=== PATIENT | female | born 1985 | race Caucasian/White ===

== ENCOUNTER 2017-07-31 09:04 | Outpatient (CLI) | payer OTHER | END 2017-07-31 13:15 | disposition home or self-care (01) | LOC: OBT 09:04 → L-D 09:09 → OBT 13:15 | DX: O62.9 Abnormality of forces of labor, unspecified (principal); Z3A.40 40 weeks gestation of pregnancy | CPT/HCPCS: 76818 ==

== ENCOUNTER 2017-08-01 16:50 | Inpatient (IN) | payer OTHER ==
[2017-08-01] MEDS ORDERED: HYDROCODONE/APAP (5/325) TAB PO ×3 (17:30→23:00)
[2017-08-01] MEDS ORDERED: METHYLERGONOVINE 0.2 MG INJ IM (17:30)
[2017-08-01] MEDS ORDERED: MISOPROSTOL 200 MCG TAB PR (17:30)
[2017-08-01] MEDS ORDERED: BUTORPHANOL 2 MG INJ IV (17:30)
[2017-08-01] MEDS ORDERED: OXYTOCIN 30 UNITS/LR 500 ML IV (17:30)
[2017-08-01] MEDS ORDERED: LIDOCAINE 1% (MPF) 30 ML INJ INJ (17:30)
[2017-08-01] MEDS ORDERED: CARBOPROST 250 MCG INJ IM (17:30)
[2017-08-01] MEDS: LACTATED RINGER'S 1,000 ML IV (17:31)
[2017-08-01 17:52] LABS: ADD MAN DIFF? NO
[2017-08-01 17:53] LABS: BASOPHILS % 0.2 % (0.0-2.0); EOSINOPHILS # 0.1 10^3/ul (0.0-0.5); EOSINOPHILS % 0.6 % (0.0-7.0); HEMATOCRIT 34.2 % (37.0-47.0); HEMOGLOBIN 11.7 g/dl (12.0-16.0); LYMPHOCYTES # 1.9 10^3/ul (0.8-2.9); LYMPHOCYTES % 13.1 % (15.0-51.0); MEAN CORPUSCULAR HEMOGLOBIN 29.3 pg (29.0-33.0); MEAN CORPUSCULAR HGB CONC 34.2 g/dl (32.0-37.0); MEAN CORPUSCULAR VOLUME 85.7 fl (82.0-101.0); MEAN PLATELET VOLUME 10.7 fl (7.4-10.4); MONOCYTES % 6.8 % (0.0-11.0); NEUTROPHIL # 11.2 10^3/ul (1.6-7.5); NEUTROPHILS % 78.8 % (39.0-77.0); PLATELET COUNT 279 10^3/UL (140-415); RED BLOOD COUNT 3.99 10^6/ul (4.20-5.40); RED CELL DISTRIBUTION WIDTH 13.3 % (11.5-14.5)
[2017-08-01 17:53] LABS: WHITE BLOOD COUNT 14.2 10^3/ul (4.8-10.8)
[2017-08-01 18:13] LABS: INR 0.91; PARTIAL THROMBOPLASTIN TIME 27.9 Sec (25.0-35.0); PROTIME 12.3 Sec (11.9-14.9)
[2017-08-01 18:49] LABS: HEPATITIS B SURFACE ANTIGEN NEGATIVE (NEGATIVE)
[2017-08-01] MEDS: IBUPROFEN 600 MG TAB PO (20:50)
[2017-08-01] MEDS: OXYTOCIN 30 UNITS/LR 500 ML IV ×2 (21:27→21:28)
[2017-08-01 22:09] LABS: RAPID PLASMA REAGIN NONREACTIVE (NR)
[2017-08-01] MEDS ORDERED: ONDANSETRON 4 MG INJ IV (23:00)
[2017-08-01] MEDS ORDERED: ACETAMINOPHEN 325 MG TAB PO (23:00)
[2017-08-01] MEDS ORDERED: OXYCODONE/ASPIRIN (4.88/325) TAB PO ×2 (23:00)
[2017-08-01] MEDS ORDERED: BENZOCAINE 20% 56 ML SPRAY TOP (23:00)
[2017-08-01] MEDS ORDERED: DIBUCAINE 1% 30 GM OINT PR (23:00)
[2017-08-01] MEDS ORDERED: WITCH HAZEL/GLYCERIN PAD PR (23:00)
[2017-08-02] MEDS: LANOLIN 7 GM TUBE TOP (00:51)
[2017-08-02] MEDS: IBUPROFEN 600 MG TAB PO ×5 (00:51→23:54)
[2017-08-02] MEDS: OXYTOCIN 30 UNITS/LR 500 ML IV (01:52)
[2017-08-02 08:56] LABS: ADD MAN DIFF? NO
[2017-08-02 08:58] LABS: WHITE BLOOD COUNT 16.4 10^3/ul (4.8-10.8)
[2017-08-02 08:58] LABS: BASOPHILS % 0.2 % (0.0-2.0); EOSINOPHILS # 0.1 10^3/ul (0.0-0.5); EOSINOPHILS % 0.4 % (0.0-7.0); HEMATOCRIT 35.7 % (37.0-47.0); LYMPHOCYTES # 2.1 10^3/ul (0.8-2.9); LYMPHOCYTES % 12.9 % (15.0-51.0); MEAN CORPUSCULAR HEMOGLOBIN 28.6 pg (29.0-33.0); MEAN CORPUSCULAR HGB CONC 33.6 g/dl (32.0-37.0); MEAN CORPUSCULAR VOLUME 85.2 fl (82.0-101.0); MEAN PLATELET VOLUME 10.8 fl (7.4-10.4); MONOCYTE # 1.1 10^3/ul (0.3-0.9); MONOCYTES % 6.9 % (0.0-11.0); PLATELET COUNT 259 10^3/UL (140-415); RED BLOOD COUNT 4.19 10^6/ul (4.20-5.40); RED CELL DISTRIBUTION WIDTH 13.5 % (11.5-14.5)
[2017-08-02] MEDS: SENNA/DOCUSATE NA (8.6MG/50MG) TAB PO ×2 (09:19→20:44)
[2017-08-03] MEDS: IBUPROFEN 600 MG TAB PO ×2 (05:30→12:14)
[2017-08-03] MEDS: MEASLES,MUMPS,RUBELLA VACCINE INJ SC* (07:46)
[2017-08-03] MEDS: SENNA/DOCUSATE NA (8.6MG/50MG) TAB PO (09:04)
== END 2017-08-03 16:20 | disposition home or self-care (01) | DRG 775 ==
LOC: OBT 16:50 → L-D 16:51 → OBT 17:07 → L-D 17:07 → PP1 22:39
PROVIDERS: Obstetrics & Gynecology
PROC: 10E0XZZ Delivery of Products of Conception, External Approach (ICD-10-PCS; principal; 2017-08-01)
DX: O69.81X0 Labor and delivery complicated by cord around neck, without compression, not applicable or unspecified (principal); Z37.0 Single live birth; O48.0 Post-term pregnancy; Z3A.40 40 weeks gestation of pregnancy
CPT/HCPCS: 85025; 85610; 85730; 86592; 86850; 86900; 86901; 87340; 99464